=== PATIENT | female | born 1955 | race Caucasian/White ===

== ENCOUNTER 2018-06-07 14:17 | Outpatient (CLI) | payer BC ==
--- NOTE | 2018-06-07 15:54 | RAD ---
XRAY RIGHT RIBS 4 VIEW WITH A PA CHEST XRAY: HISTORY: Anterior rib pain. COMPARISON: Chest radiograph 10/05/2015. FINDINGS: Lungs are clear. No pneumothorax or effusion. Cardiac silhouette and mediastinal contours within no rmal limits. There is no acute osseous abnormality. IMPRESSION: No acute intrathoracic abnormality. POS: [facility]
== END 2018-06-07 14:18 | disposition home or self-care (01) ==
LOC: SCSRAD 14:17
PROVIDERS: ATTEND Family Medicine
DX: R07.81 Pleurodynia (principal)
CPT/HCPCS: 71111

== ENCOUNTER 2018-08-02 11:05 | Outpatient (CLI) | payer BC ==
--- NOTE | 2018-08-02 12:59 | ULT ---
ABDOMINAL ULTRASOUND: 08/02/2018 PROVIDED CLINICAL HISTORY: Right upper quadrant pain. COMPARISON: 06/04/2015 FINDINGS: The visualized abdominal aorta, IVC, and pancreas appear normal. The liver appears echogenic, sugges ting fatty infiltration. Cysts are seen within the hepatic parenchyma, with minimal complexity. The largest of these measures about 5.9 cm. There is no evidence for solid mass or intrahepatic biliary ductal dilatation. The common duct is not dilated. The gallbladder demonstrates no stones, wall thickening, or pericholecystic fluid. The kidneys demon strate no hydronephrosis or mass. The spleen is prominent in size, measuring about 14.5 cm, but demo nstrates no focal abnormality. Hepatic cysts appear similar to the prior CT exam. IMPRESSION: 1. Fatty infiltration of the liver. 2. Splenomegaly. POS: [facility]
== END 2018-08-02 11:06 | disposition home or self-care (01) ==
LOC: SCSULT 11:05
PROVIDERS: ATTEND Family Medicine
DX: R10.13 Epigastric pain (principal); R11.0 Nausea; K76.0 Fatty (change of) liver, not elsewhere classified; R16.1 Splenomegaly, not elsewhere classified
CPT/HCPCS: 76700

== ENCOUNTER 2019-05-26 08:52 | Outpatient (CLI) | payer BC ==
--- NOTE | 2019-05-26 09:30 | BD ---
EXAM: Bone densitometry using DEXA HISTORY: 64 yo female. Screening for postmenopausal osteoporosis FINDINGS: L1--bone mineral density 1.079 g/sq cm; T score 0.8 ; Z score 2.3 L2--bone mineral density 1.031 g/sq cm; T score 0.0 ; Z score 1.7 L3--bone mineral density 1.289 g/sq cm; T score 1.9 ; Z score 3.6 L4--bone mineral density 1.451 g/sq cm; T score 3.5 ; Z score 5.4 Total L1-L4--bone mineral density 1.221 g/sq cm; T score 1.6 ; Z score 3.3 Left femoral neck--bone mineral density0.985; T score 1.2 ; Z score 2.7 Total proximal left femur--bone mineral density 1.109; T score 1.4 ; Z score 2.5 IMPRESSION: Normal BMD.
== END 2019-05-26 08:53 | disposition home or self-care (01) ==
LOC: BICMAMMO 08:52
PROVIDERS: ATTEND Obstetrics & Gynecology
DX: Z13.820 Encounter for screening for osteoporosis (principal)
CPT/HCPCS: 77080

== ENCOUNTER 2020-10-06 11:00 | Inpatient (IN) | payer MEDICARE, BC ==
[2020-10-08 10:37] VITALS: BMI 42.3
[2020-10-11] MEDS ORDERED: VANCOMYCIN 2 GRAM/400 ML BAG 2 GM in Premix Bag 1 BAG IVPB SCH (06:15)
[2020-10-11] MEDS ORDERED: Fentanyl 100 MCG/2 ML VIAL ONE ×5 (06:17→10:17)
[2020-10-11] MEDS ORDERED: Midazolam HCl 2 mg/2 ml Vial ONE ×2 (06:17→06:39)
[2020-10-11] MEDS ORDERED: Lidocaine 1% (PF) 30 ML VIAL ONE (06:39)
[2020-10-11] MEDS ORDERED: Tranexamic Acid 1,000 MG/10 ML VIAL ONE (06:39)
[2020-10-11] MEDS ORDERED: Sodium Chloride 0.9% 100 ML ONE (06:40)
[2020-10-11] MEDS ORDERED: Ondansetron PF 4 MG/2 ML Vial IVP PRN (06:50)
[2020-10-11] MEDS ORDERED: diphenhydrAMINE 25 MG CAP PO PRN (06:50)
[2020-10-11] MEDS ORDERED: HYDROcodone/Acetaminophen 10/325 mg Tablet PO PRN ×3 (06:50→07:45)
[2020-10-11] MEDS ORDERED: Promethazine HCl 25 MG/ML VIAL IM PRN ×3 (06:50→09:23)
[2020-10-11] MEDS ORDERED: Zolpidem Tartrate 5 MG TAB PO PRN ×2 (06:50→07:45)
[2020-10-11] MEDS ORDERED: Acetaminophen 325 MG TAB PO PRN (06:50)
[2020-10-11] MEDS ORDERED: Ondansetron PF 4 MG/2 ML Vial ONE (07:25)
[2020-10-11] MEDS ORDERED: Dexamethasone 20 MG/5 ML VIAL ONE (07:25)
[2020-10-11] MEDS ORDERED: Bupivacaine HCl 0.5%/Epinephrine 1:200,000/PF 30 ml Vial ONE (07:25)
[2020-10-11] MEDS ORDERED: Lidocaine 1% PF 5 ML VIAL ONE (07:25)
[2020-10-11] MEDS ORDERED: PROPOFOL 200 MG/20 ML VIAL ONE (07:25)
[2020-10-11] MEDS ORDERED: Ropivacaine 2% HCl/PF (20 MG/10 ML VIAL) ONE (07:25)
[2020-10-11] MEDS ORDERED: Fentanyl 100 MCG/2 ML VIAL SLOW IVP PRN (07:41)
[2020-10-11] MEDS ORDERED: traMADol HCl 50 MG TAB PO PRN ×2 (07:45)
[2020-10-11] MEDS ORDERED: Ropivacaine HCl/PF 250 ML in Premix Bag 1 BAG NERVE BLCK SCH (07:45)
[2020-10-11] MEDS ORDERED: Atorvastatin Calcium 20 MG TAB PO SCH (09:00)
[2020-10-11] MEDS ORDERED: Promethazine HCl 25 MG/ML VIAL SLOW IVP PRN (09:23)
[2020-10-11] MEDS ORDERED: Ondansetron HCl/PF 4 MG/2 ML Vial IVP PRN (09:23)
[2020-10-11] MEDS ORDERED: HYDROmorphone 2 MG/ML VIAL SLOW IVP PRN (09:23)
[2020-10-11] MEDS ORDERED: Cyclobenzaprine 10 MG TAB PO PRN (09:34)
[2020-10-11] MEDS ORDERED: Ketorolac Tromethamine 30 MG/ML VIAL ONE (09:49)
[2020-10-11] MEDS: Sodium Chloride 0.9% 1,000 ML IV SCH ×2 (11:15→17:28)
[2020-10-11] MEDS: Aspirin 81 mg Enteric Coated Tablet PO SCH ×2 (11:15→21:17)
[2020-10-11] MEDS: Sulfameth/Trimethoprim DS 800-160mg TAB PO SCH ×2 (11:17→21:17)
[2020-10-11] MEDS: Ondansetron PF 4 MG/2 ML Vial IVP PRN ×2 (11:50→18:13)
[2020-10-11] MEDS: HYDROcodone/Acetaminophen 10/325 mg Tablet PO PRN ×3 (11:53→23:38)
[2020-10-11] MEDS: Ketorolac Tromethamine 30 MG/ML VIAL IVP SCH ×3 (11:54→23:37)
[2020-10-11] MEDS ORDERED: Ketorolac Tromethamine 30 MG/ML VIAL IVP SCH (14:00)
[2020-10-11] MEDS: CEFAZOLIN 2 GM in Premix Bag 1 BAG IVPB SCH ×2 (14:28→23:39)
[2020-10-11] MEDS: Atorvastatin Calcium 20 MG TAB PO SCH (21:17)
[2020-10-12] MEDS: Sodium Chloride 0.9% 1,000 ML IV SCH ×3 (04:11→23:02)
[2020-10-12] MEDS: Levothyroxine Sodium 75 MCG TAB PO SCH (05:39)
[2020-10-12] MEDS: Ketorolac Tromethamine 30 MG/ML VIAL IVP SCH ×4 (05:39→23:02)
[2020-10-12 06:06] LABS: Hemoglobin 11.8 g/dL (12.0-16.0); Mean Corpuscular HGB CONC 32.8 g/dL (32.0-36.0); Mean Corpuscular Hemoglobin 31.8 pg (27.0-31.0); Mean Corpuscular Volume 97.1 fL (78.0-98.0); Mean Platelet Volume 7.6 fL (7.4-10.4); Platelet Count 209 thou/uL (130-400); RBC Distribution Width 11.5 % (11.5-14.5); Red Blood Cell (RBC) Count 3.71 mill/uL (4.20-5.40); White Blood Cell (WBC) Count 9.7 thou/uL (4.8-10.8)
[2020-10-12] MEDS: Ferrous Gluconate 324 MG TAB PO SCH ×2 (08:34→17:41)
[2020-10-12] MEDS: Senokot S 8.6-50 MG TAB PO SCH ×2 (08:34→19:45)
[2020-10-12] MEDS: Aspirin 81 mg Enteric Coated Tablet PO SCH ×2 (08:35→19:46)
[2020-10-12] MEDS: Multivitamin W/ Minerals 1 TAB PO SCH (08:35)
[2020-10-12] MEDS: Sulfameth/Trimethoprim DS 800-160mg TAB PO SCH ×2 (08:35→19:46)
[2020-10-12] MEDS: HYDROcodone/Acetaminophen 10/325 mg Tablet PO PRN ×2 (10:15→15:11)
[2020-10-12] MEDS: Atorvastatin Calcium 20 MG TAB PO SCH (19:46)
[2020-10-12] MEDS: Ondansetron PF 4 MG/2 ML Vial IVP PRN (19:51)
[2020-10-13] MEDS: Ketorolac Tromethamine 30 MG/ML VIAL IVP SCH (05:10)
[2020-10-13] MEDS: Levothyroxine Sodium 75 MCG TAB PO SCH (05:10)
[2020-10-13] MEDS: Multivitamin W/ Minerals 1 TAB PO SCH (08:06)
[2020-10-13] MEDS: Sulfameth/Trimethoprim DS 800-160mg TAB PO SCH (08:06)
[2020-10-13] MEDS: Ferrous Gluconate 324 MG TAB PO SCH (08:06)
[2020-10-13] MEDS: Aspirin 81 mg Enteric Coated Tablet PO SCH (08:06)
[2020-10-13] MEDS: Senokot S 8.6-50 MG TAB PO SCH (08:06)
[2020-10-13] MEDS ORDERED: Polyethylene Glycol 3350 17 GM Packet PO PRN (08:14)
[2020-10-13] MEDS: Sodium Chloride 0.9% 1,000 ML IV SCH (09:00)
[2020-10-13] MEDS: HYDROcodone/Acetaminophen 10/325 mg Tablet PO PRN (10:29)
[2020-10-13 11:59] VITALS: BP 118/69; TEMP 98.2
[2020-10-13 12:08] LABS: Hemoglobin 11.3 g/dL (12.0-16.0); Mean Corpuscular Hemoglobin 32.1 pg (27.0-31.0); Mean Corpuscular Volume 97.3 fL (78.0-98.0); Mean Platelet Volume 6.9 fL (7.4-10.4); Platelet Count 172 thou/uL (130-400); RBC Distribution Width 11.4 % (11.5-14.5); Red Blood Cell (RBC) Count 3.53 mill/uL (4.20-5.40); White Blood Cell (WBC) Count 9.2 thou/uL (4.8-10.8)
== END 2020-10-13 15:28 | disposition home or self-care (01) | DRG 470 ==
LOC: SJJU 10-11 05:39 → SURG A 10-11 11:03
PROVIDERS: ADMIT Orthopaedic Surgery; ATTEND Orthopaedic Surgery
PROC: 0SRC069 Replacement of Right Knee Joint with Oxidized Zirconium on Polyethylene Synthetic Substitute, Cemented, Open Approach (ICD-10-PCS; principal; 2020-10-11)
DX: M17.11 Unilateral primary osteoarthritis, right knee (principal); E78.5 Hyperlipidemia, unspecified; E03.9 Hypothyroidism, unspecified; E66.01 Morbid (severe) obesity due to excess calories; Z68.41 Body mass index [BMI] 40.0-44.9, adult; Z90.49 Acquired absence of other specified parts of digestive tract; Z87.891 Personal history of nicotine dependence
CPT/HCPCS: 36415; 85027; C1713; C1776; J0690; J1100; J1885; J2001; J2250; J2405; J2704; J2795; J3010; J3490

== ENCOUNTER 2020-10-06 11:10 | Outpatient (CLI) | payer MEDICARE, BC ==
[2020-10-06 12:58] LABS: Hemoglobin 13.6 g/dL (12.0-15.5); Mean Corpuscular HGB CONC 32.2 g/dL (32.0-36.0); Mean Corpuscular Hemoglobin 30.4 pg (27.0-33.0); Mean Corpuscular Volume 94.4 fl (81.6-98.3); Mean Platelet Volume 9.6 fl (7.4-10.4); Platelet Count 185 10x3/uL (150-450); RBC Distribution Width 12.1 % (11.5-14.5); Red Blood Cell (RBC) Count 4.48 10x6/uL (3.90-5.03); White Blood Cell (WBC) Count 5.2 10x3/uL (3.5-10.5)
[2020-10-06 13:01] LABS: Bilirubin Neg (Negative); Blood, Urine Negative (Negative); Clarity Slightly Cloudy (Clear); Glucose, Urine (Dipstick) Normal (Negative); Ketone, Urine 5 mg/dL (Negative); Leukocyte 100 (Negative); Nitrite Negative (Negative); Protein, Urine (Dipstick) 30 mg/dl (Neg-Trace); Urobilinogen Normal mg/dL (Less than 2)
[2020-10-06 13:14] LABS: Bacteria/HPF 2+ HPF (None Seen); Calcium Oxalate Crystals 1+ HPF (None Seen); RBC/HPF 0-3 HPF (0-3); WBC/HPF 0-3 HPF (0-3)
[2020-10-06 13:22] LABS: AST (SGOT) 20 U/L (5-34); Albumin 4.2 g/dL (3.4-4.8); Anion Gap 17 mmol/L (10-20); Bilirubin, Total 0.6 mg/dL (0.2-1.2); Calc. Creatinine Clearance 0 mL/min (70-130); Calcium 9.5 mg/dL (7.8-10.44); Carbon Dioxide 22 mmol/L (23-31); Cardiac Risk 4.1 (Less than 4.5); Chloride 108 mmol/L (98-107); Cholesterol 140 mg/dl (< 200 Desired); Globulin 2.4 g/dL (2.4-3.5); HDL Cholesterol 34 mg/dL (>60 Neg Risk); LDL Cholesterol, Calculated 84 mg/dL; Potassium 4.2 mmol/L (3.5-5.1); Protein, Total 6.6 g/dL (5.8-8.1); Sodium 143 mmol/L (136-145); Triglycerides 112 mg/dL (Less than 150)
[2020-10-06 13:24] LABS: INR-International Normal Ratio 1.5; Prothrombin Time 16.2 sec (9.5-12.1)
[2020-10-06 14:02] LABS: ALT (SGPT) 25 U/L (8-55); Alkaline Phosphatase 77 U/L (40-110); BUN (Urea Nitrogen) 11 mg/dL (9.8-20.1); Glucose 99 mg/dL (80-115)
[2020-10-06 18:01] LABS: SARS-CoV-2 PCR by NAA Not Detected (NotDetected)
[2020-10-06 21:14] LABS: Hep C IgG Ab Non-Reactive (NonReactive); Hep C Index 0.06 S/CO (0-0.79)
== END 2020-10-06 11:11 | disposition home or self-care (01) ==
LOC: LABBT 11:10
PROVIDERS: ATTEND Orthopaedic Surgery
DX: Z01.818 Encounter for other preprocedural examination (principal); M17.11 Unilateral primary osteoarthritis, right knee; Z20.822 Contact with and (suspected) exposure to COVID-19
CPT/HCPCS: 80053; 80061; 81001; 85027; 85610; 86803; 87081; 93005; U0003; U0005; 87635; 93010

== ENCOUNTER 2020-12-14 12:22 | Outpatient (CLI) | payer MEDICARE, BC | END 2020-12-14 12:23 | disposition home or self-care (01) | LOC: SCSRAD 12:22 | PROVIDERS: ATTEND Family Medicine | DX: M54.41 Lumbago with sciatica, right side (principal); M47.816 Spondylosis without myelopathy or radiculopathy, lumbar region; M43.16 Spondylolisthesis, lumbar region; M41.86 Other forms of scoliosis, lumbar region | CPT/HCPCS: 72110; 72202 ==

== ENCOUNTER 2021-05-12 14:57 | Outpatient (CLI) | payer MEDICARE, BC ==
[2021-05-13 12:07] LABS: SARS-CoV-2 PCR by NAA Not Detected (NotDetected)
== END 2021-05-12 14:58 | disposition home or self-care (01) ==
LOC: LABBT 14:57
PROVIDERS: ATTEND Surgery
DX: Z01.818 Encounter for other preprocedural examination (principal); M48.062 Spinal stenosis, lumbar region with neurogenic claudication; M71.30 Other bursal cyst, unspecified site; Z20.822 Contact with and (suspected) exposure to COVID-19
CPT/HCPCS: U0003; U0005; 93005; 93010

== ENCOUNTER 2021-05-17 07:36 | Inpatient (IN) | payer MEDICARE, BC ==
[2021-05-13 14:29] VITALS: BMI 41.8
[2021-05-17] MEDS ORDERED: Thrombin 5000 UNITS/5 ML VIAL ONE ×2 (08:08→11:31)
[2021-05-17] MEDS ORDERED: ceFAZolin 2 GM/DEX 5% 100 ML BAG ONE (08:12)
[2021-05-17] MEDS ORDERED: HYDROmorphone 0.5 MG/0.5 ML SYRINGE ONE ×2 (09:10→09:45)
[2021-05-17] MEDS ORDERED: Fentanyl 100 MCG/2 ML VIAL ONE ×3 (09:10→13:20)
[2021-05-17 09:14] LABS: #Eosinphils 0.1 thou/uL (0.0-0.7); #Lymphocytes 1.4 thou/uL (1.20-3.40); #Monocytes 0.4 thou/uL (0.11-0.59); #Neutrophils 3.5 thou/uL (1.40-6.50); %Basophils 0.4 % (0.0-1.0); %Eosinophils 1.1 % (0.0-10.0); %Lymphocytes 25.7 % (21.0-51.0); %Monocytes 7.2 % (0.0-10.0); %Neutrophils 65.5 % (42.0-75.0); Mean Corpuscular HGB CONC 33.1 g/dL (32.0-36.0); Mean Corpuscular Volume 96.7 fL (78.0-98.0); Mean Platelet Volume 7.4 fL (7.4-10.4); Platelet Count 217 thou/uL (130-400); RBC Distribution Width 11.5 % (11.5-14.5); Red Blood Cell (RBC) Count 4.37 mill/uL (4.20-5.40); White Blood Cell (WBC) Count 5.3 thou/uL (4.8-10.8)
[2021-05-17 09:28] LABS: INR-International Normal Ratio 1.2; PTT 31.8 sec (22.9-36.1); Prothrombin Time 15.4 sec (12.0-14.7)
[2021-05-17 09:29] LABS: Anion Gap 12 mmol/L (10-20); BUN (Urea Nitrogen) 10 mg/dL (9.8-20.1); Calc. Creatinine Clearance 168 mL/min (70-130); Calcium 9.7 mg/dL (7.8-10.44); Carbon Dioxide 29 mmol/L (23-31); Chloride 105 mmol/L (98-107); Glucose 100 mg/dL (80-115); Potassium 4.2 mmol/L (3.5-5.1); Sodium 142 mmol/L (136-145)
[2021-05-17] MEDS ORDERED: Lidocaine 1% PF 5 ML VIAL ONE (09:50)
[2021-05-17] MEDS ORDERED: Glycopyrrolate 0.2 MG/ML 5 ML SYRINGE ONE (09:50)
[2021-05-17] MEDS ORDERED: Ondansetron PF 4 MG/2 ML Vial ONE (09:50)
[2021-05-17] MEDS ORDERED: PROPOFOL 200 MG/20 ML VIAL ONE (09:50)
[2021-05-17] MEDS ORDERED: ePHEDrine 50 MG/ML VIAL ONE (09:50)
[2021-05-17] MEDS ORDERED: Rocuronium Bromide 10 MG/ML (10ML VIAL) ONE (09:50)
[2021-05-17] MEDS ORDERED: PHENYLEPHRINE-NS 100 MCG/ML 10 ML SYRINGE ONE (09:50)
[2021-05-17] MEDS ORDERED: tiZANidine HCl 4 MG TAB PO PRN (09:53)
[2021-05-17] MEDS ORDERED: Morphine 4 MG/ML VIAL SLOW IVP PRN (09:53)
[2021-05-17] MEDS ORDERED: Acetaminophen 325 MG TAB PO PRN (09:53)
[2021-05-17] MEDS ORDERED: Gabapentin 100 MG CAP PO PRN (09:56)
[2021-05-17] MEDS ORDERED: Morphine 10 MG/ML VIAL ONE (11:23)
[2021-05-17] MEDS ORDERED: Promethazine HCl 25 MG/ML VIAL IM PRN (13:04)
[2021-05-17] MEDS ORDERED: Morphine Sulfate 2 MG/ML SYRINGE SLOW IVP PRN (13:04)
[2021-05-17] MEDS ORDERED: Promethazine HCl 25 MG/ML VIAL IVPB PRN (13:04)
[2021-05-17] MEDS ORDERED: Ondansetron HCl/PF 4 MG/2 ML Vial IVP PRN (13:04)
[2021-05-17] MEDS ORDERED: Morphine 4 MG/ML VIAL ONE (14:29)
[2021-05-17] MEDS ORDERED: ceFAZolin Sodium/D5W 2 GM in Premix Bag 1 BAG IVPB SCH (17:00)
[2021-05-17] MEDS: Acetaminophen/Codeine 30-300mg Tablet PO PRN ×2 (17:49→22:47)
[2021-05-17] MEDS: Cyclobenzaprine 10 MG TAB PO PRN (17:54)
[2021-05-17] MEDS: CEFAZOLIN 2 GM, Admixture Fee 1 EACH in Sodium Chloride 0.9% 100 ML IVPB SCH (18:16)
[2021-05-17] MEDS: Sodium Chloride 0.9% 1,000 ML IV SCH ×2 (19:27→21:07)
[2021-05-17] MEDS: Gabapentin 300 MG CAP PO SCH (19:50)
[2021-05-17] MEDS: Atorvastatin Calcium 20 MG TAB PO SCH (19:51)
[2021-05-17] MEDS: HYDROcodone/Acetaminophen 7.5/325 mg Tablet PO PRN (19:51)
[2021-05-18] MEDS: Cyclobenzaprine 10 MG TAB PO PRN ×3 (02:12→20:00)
[2021-05-18] MEDS: HYDROcodone/Acetaminophen 7.5/325 mg Tablet PO PRN ×4 (02:12→20:01)
[2021-05-18] MEDS: CEFAZOLIN 2 GM, Admixture Fee 1 EACH in Sodium Chloride 0.9% 100 ML IVPB SCH (02:13)
[2021-05-18] MEDS: Levothyroxine Sodium 75 MCG TAB PO SCH (05:26)
[2021-05-18] MEDS: Acetaminophen/Codeine 30-300mg Tablet PO PRN ×3 (05:28→16:10)
[2021-05-18 05:42] LABS: #Lymphocytes 1.2 thou/uL (1.20-3.40); #Monocytes 0.8 thou/uL (0.11-0.59); #Neutrophils 10.1 thou/uL (1.40-6.50); %Basophils 0.1 % (0.0-1.0); %Eosinophils 0.2 % (0.0-10.0); %Lymphocytes 10.1 % (21.0-51.0); %Monocytes 6.2 % (0.0-10.0); %Neutrophils 83.5 % (42.0-75.0); Hemoglobin 11.3 g/dL (12.0-16.0); Mean Corpuscular HGB CONC 33.4 g/dL (32.0-36.0); Mean Corpuscular Hemoglobin 32.5 pg (27.0-31.0); Mean Corpuscular Volume 97.3 fL (78.0-98.0); Mean Platelet Volume 7.1 fL (7.4-10.4); Platelet Count 201 thou/uL (130-400); RBC Distribution Width 11.7 % (11.5-14.5); Red Blood Cell (RBC) Count 3.48 mill/uL (4.20-5.40); White Blood Cell (WBC) Count 12.1 thou/uL (4.8-10.8)
[2021-05-18 06:06] LABS: Anion Gap 12 mmol/L (10-20); BUN (Urea Nitrogen) 11 mg/dL (9.8-20.1); Calc. Creatinine Clearance 152 mL/min (70-130); Calcium 8.7 mg/dL (7.8-10.44); Carbon Dioxide 25 mmol/L (23-31); Chloride 103 mmol/L (98-107); Glucose 126 mg/dL (80-115); Potassium 4.2 mmol/L (3.5-5.1); Sodium 136 mmol/L (136-145)
[2021-05-18] MEDS: Sodium Chloride 0.9% 1,000 ML IV SCH (08:07)
[2021-05-18] MEDS: Gabapentin 100 MG CAP PO SCH ×2 (08:58→16:10)
[2021-05-18] MEDS: Atorvastatin Calcium 20 MG TAB PO SCH (19:59)
[2021-05-18] MEDS: Gabapentin 300 MG CAP PO SCH (19:59)
[2021-05-19] MEDS: Levothyroxine Sodium 75 MCG TAB PO SCH (05:11)
[2021-05-19] MEDS: Acetaminophen/Codeine 30-300mg Tablet PO PRN (05:11)
[2021-05-19] MEDS: Sodium Chloride 0.9% 1,000 ML IV SCH (05:12)
[2021-05-19 08:25] VITALS: BP 149/84; TEMP 97.9
[2021-05-19] MEDS: Gabapentin 100 MG CAP PO SCH (08:27)
[2021-05-19] MEDS: Cyclobenzaprine 10 MG TAB PO PRN (08:30)
[2021-05-19] MEDS: HYDROcodone/Acetaminophen 7.5/325 mg Tablet PO PRN (08:31)
== END 2021-05-19 10:57 | disposition home or self-care (01) | DRG 517 ==
LOC: SDC 07:36 → SURG A 09:53 → OBSVTOIN 16:34
PROVIDERS: ADMIT Surgery; ATTEND Surgery
PROC: 01NB0ZZ Release Lumbar Nerve, Open Approach (ICD-10-PCS; principal; 2021-05-17)
PROC: 01NR0ZZ Release Sacral Nerve, Open Approach (ICD-10-PCS; 2021-05-17)
DX: M48.062 Spinal stenosis, lumbar region with neurogenic claudication (principal); M71.38 Other bursal cyst, other site; E78.5 Hyperlipidemia, unspecified; Z96.651 Presence of right artificial knee joint; E03.9 Hypothyroidism, unspecified; K76.0 Fatty (change of) liver, not elsewhere classified; Z87.891 Personal history of nicotine dependence; Z86.16 Personal history of COVID-19
CPT/HCPCS: 36415; 76000; 80048; 85025; 85610; 85730; C1776; J0690; J1170; J2270; J2405; J2704; J3010; J3370; J3490

== ENCOUNTER 2023-01-25 12:06 | Outpatient (CLI) | payer MEDICARE, BC ==
[2023-01-25 14:37] LABS: #Eosinphils 0.1 10x3/uL (0.0-0.5); #Monocytes 0.4 10x3/uL (0.0-1.1); #Neutrophils 3.7 10x3/uL (1.5-8.4); %Basophils 0.7 % (0.0-2.0); %Eosinophils 1.8 % (0.0-6.0); %Lymphocytes 24.5 % (18.0-47.0); %Monocytes 7.5 % (0.0-10.0); %Neutrophils 65.3 % (40.0-75.0); Hemoglobin 13.6 g/dL (12.0-15.5); Mean Corpuscular HGB CONC 32.1 g/dL (32.0-36.0); Mean Corpuscular Hemoglobin 30.8 pg (27.0-33.0); Mean Corpuscular Volume 95.9 fl (81.6-98.3); Mean Platelet Volume 10.1 fl (7.4-10.4); Platelet Count 204 10x3/uL (150-450); Red Blood Cell (RBC) Count 4.42 10x6/uL (3.90-5.03); White Blood Cell (WBC) Count 5.6 10x3/uL (3.5-10.5)
[2023-01-25 14:55] LABS: INR-International Normal Ratio 1.5; Prothrombin Time 15.5 sec (9.5-12.1)
[2023-01-25 15:09] LABS: Anion Gap 16 mmol/L (10-20); BUN (Urea Nitrogen) 10 mg/dL (9.8-20.1); Calc. Creatinine Clearance 0 mL/min (70-130); Carbon Dioxide 25 mmol/L (23-31); Chloride 104 mmol/L (98-107); Estimated GFR 93; Glucose 101 mg/dL (80-115); Potassium 4.1 mmol/L (3.5-5.1); Sodium 141 mmol/L (136-145)
== END 2023-01-25 12:07 | disposition home or self-care (01) ==
LOC: LABBT 12:06
PROVIDERS: ATTEND Orthopaedic Surgery
DX: Z01.812 Encounter for preprocedural laboratory examination (principal); M17.12 Unilateral primary osteoarthritis, left knee
CPT/HCPCS: 80048; 85025; 85610; 87081

== ENCOUNTER 2023-01-29 05:40 | Observation (INO) | payer MEDICARE, BC ==
[2023-01-25 13:02] VITALS: BMI 41.8
[2023-01-29] MEDS ORDERED: Sodium Chloride 0.9% 100 ML ONE ×2 (05:58→06:55)
[2023-01-29] MEDS ORDERED: Tranexamic Acid 1,000 MG/10 ML VIAL ONE (05:58)
[2023-01-29] MEDS ORDERED: VANCOMYCIN 2 GRAM/500 ML BAG 2 GM in Premix Bag 1 BAG IVPB SCH (06:15)
[2023-01-29] MEDS ORDERED: Bupivacaine PF 0.5% 30 ML VIAL ONE (06:19)
[2023-01-29] MEDS ORDERED: Midazolam HCl 2 mg/2 ml Vial ONE ×2 (06:23→09:39)
[2023-01-29] MEDS ORDERED: fentaNYL PF 100 MCG/2 ML SYRINGE ONE (06:23)
[2023-01-29] MEDS ORDERED: Ondansetron PF 4 MG/2 ML Vial IVP PRN ×2 (06:45→07:30)
[2023-01-29] MEDS ORDERED: HYDROcodone/Acetaminophen 10/325 mg Tablet PO PRN ×2 (06:45)
[2023-01-29] MEDS ORDERED: diphenhydrAMINE 25 MG CAP PO PRN (06:45)
[2023-01-29] MEDS ORDERED: fentaNYL 50 mcg/mL 1 mL Vial SLOW IVP PRN ×2 (06:45→07:25)
[2023-01-29] MEDS ORDERED: Zolpidem Tartrate 5 MG TAB PO PRN ×2 (06:45→07:30)
[2023-01-29] MEDS ORDERED: Promethazine HCl 25 MG/ML VIAL IM PRN ×3 (06:45→08:58)
[2023-01-29] MEDS ORDERED: Acetaminophen 325 MG TAB PO PRN (06:45)
[2023-01-29] MEDS ORDERED: CEFAZOLIN 2 GM VIAL ONE (06:55)
[2023-01-29] MEDS ORDERED: Lidocaine 1% PF 5 ML VIAL ONE (07:11)
[2023-01-29] MEDS ORDERED: Ketorolac Tromethamine 30 MG/ML VIAL ONE (07:11)
[2023-01-29] MEDS ORDERED: Dexamethasone 20 MG/5 ML VIAL ONE (07:11)
[2023-01-29] MEDS ORDERED: PROPOFOL 200 MG/20 ML VIAL ONE (07:11)
[2023-01-29] MEDS ORDERED: Ondansetron PF 4 MG/2 ML Vial ONE (07:11)
[2023-01-29] MEDS ORDERED: fentaNYL 50 mcg/mL 1 mL Vial ONE ×4 (07:12→09:29)
[2023-01-29] MEDS ORDERED: EPINEPHrine 1 MG/ML AMP ONE (07:12)
[2023-01-29] MEDS ORDERED: Lidocaine 1% (PF) 30 ML VIAL ONE (07:12)
[2023-01-29] MEDS ORDERED: Ropivacaine 0.5% HCl/PF (150 MG/30 ML VIAL) ONE (07:12)
[2023-01-29] MEDS: Sodium Chloride 0.9% 1,000 ML IV SCH ×2 (07:13→16:13)
[2023-01-29] MEDS ORDERED: Ropivacaine 0.2% 550 ML 550 ML NERVE BLCK SCH (07:30)
[2023-01-29] MEDS ORDERED: PACU-Morphine 4MG/ML VIAL SLOW IVP PRN (08:58)
[2023-01-29] MEDS ORDERED: Ondansetron HCl/PF 4 MG/2 ML Vial IVP PRN (08:58)
[2023-01-29] MEDS ORDERED: Morphine 4 MG/ML VIAL ONE (09:00)
[2023-01-29] MEDS ORDERED: Morphine 2 MG/ML VIAL ONE ×2 (09:05→09:19)
[2023-01-29] MEDS: Aspirin 81 mg Enteric Coated Tablet PO SCH ×2 (10:30→20:57)
[2023-01-29] MEDS: Ketorolac Tromethamine 30 MG/ML VIAL IVP SCH ×2 (10:31→17:59)
[2023-01-29] MEDS: HYDROcodone/Acetaminophen 5/325 mg Tablet PO PRN ×3 (10:51→20:58)
[2023-01-29] MEDS ORDERED: Ketorolac Tromethamine 30 MG/ML VIAL IVP SCH (14:00)
[2023-01-29] MEDS: CEFAZOLIN 2 GM in Sodium Chloride 0.9% 100 ML IVPB SCH (15:45)
[2023-01-29] MEDS: Cyclobenzaprine 10 MG TAB PO PRN (20:57)
[2023-01-29] MEDS: Atorvastatin Calcium 20 MG TAB PO SCH (20:57)
[2023-01-30] MEDS: Ketorolac Tromethamine 30 MG/ML VIAL IVP SCH ×4 (00:20→20:22)
[2023-01-30] MEDS: CEFAZOLIN 2 GM in Sodium Chloride 0.9% 100 ML IVPB SCH (00:20)
[2023-01-30] MEDS: Sodium Chloride 0.9% 1,000 ML IV SCH ×2 (04:30→13:35)
[2023-01-30] MEDS: Levothyroxine Sodium 75 MCG TAB PO SCH (05:45)
[2023-01-30 06:52] LABS: Hemoglobin 11.3 g/dL (12.0-16.0); Mean Corpuscular HGB CONC 31.4 g/dL (32.0-36.0); Mean Corpuscular Hemoglobin 31.4 pg (27.0-31.0); Mean Platelet Volume 9.7 fL (7.4-10.4); Platelet Count 185 10x3/uL (130-400); RBC Distribution Width 12.2 % (11.5-14.5); White Blood Cell (WBC) Count 9.9 10x3/uL (4.8-10.8)
[2023-01-30] MEDS: Aspirin 81 mg Enteric Coated Tablet PO SCH ×2 (09:08→20:22)
[2023-01-30] MEDS: Multivitamin W/ Minerals 1 TAB PO SCH (09:08)
[2023-01-30] MEDS: Senokot S 8.6-50 MG TAB PO SCH ×2 (09:08→20:23)
[2023-01-30] MEDS: Ferrous Gluconate 324 MG TAB PO SCH ×2 (09:08→15:32)
[2023-01-30] MEDS: HYDROcodone/Acetaminophen 5/325 mg Tablet PO PRN ×2 (15:32→20:23)
[2023-01-30] MEDS: Cyclobenzaprine 10 MG TAB PO PRN (20:22)
[2023-01-30] MEDS: Atorvastatin Calcium 20 MG TAB PO SCH (20:23)
[2023-01-31] MEDS: Sodium Chloride 0.9% 1,000 ML IV SCH ×2 (00:42→11:48)
[2023-01-31] MEDS: Ketorolac Tromethamine 30 MG/ML VIAL IVP SCH ×2 (00:44→05:07)
[2023-01-31 05:05] LABS: Hematocrit 35.3 % (36.0-47.0); Mean Corpuscular HGB CONC 31.2 g/dL (32.0-36.0); Mean Corpuscular Hemoglobin 31.4 pg (27.0-31.0); Mean Corpuscular Volume 100.9 fl (78.0-98.0); Mean Platelet Volume 9.8 fL (7.4-10.4); Platelet Count 159 10x3/uL (130-400); RBC Distribution Width 12.6 % (11.5-14.5); White Blood Cell (WBC) Count 7.2 10x3/uL (4.8-10.8)
[2023-01-31] MEDS: Levothyroxine Sodium 75 MCG TAB PO SCH (05:07)
[2023-01-31 09:24] VITALS: BP 163/71; TEMP 98.6
[2023-01-31] MEDS: Multivitamin W/ Minerals 1 TAB PO SCH (09:33)
[2023-01-31] MEDS: HYDROcodone/Acetaminophen 5/325 mg Tablet PO PRN ×2 (09:33→13:40)
[2023-01-31] MEDS: Aspirin 81 mg Enteric Coated Tablet PO SCH (09:33)
[2023-01-31] MEDS: Ferrous Gluconate 324 MG TAB PO SCH (09:33)
[2023-01-31] MEDS: Senokot S 8.6-50 MG TAB PO SCH (09:34)
[2023-01-31] MEDS: Cyclobenzaprine 10 MG TAB PO PRN (13:06)
== END 2023-01-31 14:15 | disposition home or self-care (01) ==
LOC: SDC 05:40 → SJJU 06:46
PROVIDERS: ADMIT Orthopaedic Surgery; ATTEND Orthopaedic Surgery
PROC: 0SRD0JZ Replacement of Left Knee Joint with Synthetic Substitute, Open Approach (ICD-10-PCS; principal; 2023-01-29)
DX: M17.12 Unilateral primary osteoarthritis, left knee (principal); E78.5 Hyperlipidemia, unspecified; I10 Essential (primary) hypertension; E03.9 Hypothyroidism, unspecified; E66.9 Obesity, unspecified; Z68.30 Body mass index [BMI] 30.0-30.9, adult; Z87.891 Personal history of nicotine dependence; Z90.49 Acquired absence of other specified parts of digestive tract; Z79.899 Other long term (current) drug therapy; Z79.890 Hormone replacement therapy; Z88.6 Allergy status to analgesic agent
CPT/HCPCS: 27447; 73560; 85027 ×2; 97110 ×3; 97116 ×3; 97530; A4306; C1776; J3010; J3370; 36415; J0171; J1100; J1885; J2001; J2250; J2270; J2272; J2405; J2704; J2795; J3490; S0020